=== PATIENT | male | born 1980 | race Caucasian/White ===

== ENCOUNTER 2018-05-16 15:36 | Observation (INO) | payer SELFPAY ==
--- NOTE | 2018-05-16 15:45 | EDPHY ---
H & P Time Seen by Provider: 05/16/18 15:45 HPI/ROS: HPI CHIEF COMPLAINT: Chest discomfort, fast heart rate HISTORY OF PRESENT ILLNESS: 37-year-old male, history of anxiety as well as SVT , states he has had SVT 20 times in his life and typically can self converted himself. He presents emergency room stating for the past 2-3 days he has had discomfort in his chest describes an achiness substernal sometimes goes up to his throat. He thinks it may be GERD. Additionally he reports that this morning he around 7:00 a.m. He thinks he was in SVT with a heart rate 160-1 70s. He splashed cold water on his face and this resolved that. However he states his heart rate has been elevated more so today than normally. He states he normally runs heart rate in the 60s to 70s. However he has noticed his heart rates been the 100s to 120s. He does have some chest discomfort. This prompted him to come to the emergency room. Upon arrival he does complain of discomfort in his chest. Additionally complains of anxiety. Past Medical History: Anxiety, SVT Past Surgical History: History right shoulder surgery Social History: Denies daily use of drugs alcohol tobacco. Family History: Noncontributory ROS REVIEW OF SYSTEMS: A comprehensive 10 point review of systems is otherwise negative aside from elements mentioned in the history of present illness. Exam Constitutional nontoxic appearing, slightly anxious triage nursing summary reviewed, vital signs reviewed, awake/alert. Vital signs noted to be tachycardic upon arrival in the 120s. Eyes normal conjunctivae and sclera, EOMI, PERRLA. HENT normal inspection, atraumatic, moist mucus membranes, no epistaxis, neck supple/ no meningismus, no raccoon eyes. Respiratory clear to auscultation bilaterally, normal breath sounds, no respiratory distress, no wheezing. Cardiovascular rate normal, regular rhythm, no murmur, no edema, distal pulses normal. Gastrointestinal soft, non-tender, no rebound, no guarding, normal bowel sounds, no distension, no pulsatile mass. Genitourinary no CVA tenderness. Musculoskeletal no midline vertebral tenderness, full range of motion, no calf swelling, no tenderness of extremities, no meningismus, good pulses, neurovascularly intact. Skin pink, warm, & dry, no rash, skin atraumatic. Neurologic awake, alert and oriented x 3, AAOx3, moves all 4 extremities equally, motor intact, sensory intact, CN II-XII intact, normal cerebellar, normal vision, normal speech. Psychiatric normal mood/affect. Heme/Lymph/Immune no lymphadenopathy. Differential diagnosis includes but is not limited to: ACS, atypical chest pain , pneumothorax, pneumonia, pulmonary embolism, aortic dissection, congestive heart failure, tumor, musculoskeletal pain, esophageal pain, GERD, peptic ulcer disease, pancreatitis Medical Decision Making: Plan for this patient chest x-ray, EKG, IV, point care troponin, rule out acute coronary syndrome, rule out acute cardiac arrhythmia. And evaluate him for chest pain tachycardia. D-dimer, labs, IV fluid bolus, GI cocktail and Ativan. Re-evaluation: EKG interpretation by me on record in [employer] system. Impression time of EKG 1548, sinus tachycardia rate of 114 T-wave inversion lead to [address] elevation. ED x-ray chest one view negative for acute cardiopulmonary disease. Point of care troponin 0.00. D-dimer < 100 which is normal for POC ddimer. Given the patient's ongoing tachycardia with some T-wave inversions in to 3 AVF in the history of chest discomfort I did recommend the patient gets admitted overnight for serial enzymes and observation. Reason for this chest pain, tachycardia T-wave inversions. Is noted his chest x-ray, D-dimer and troponin are negative. EKG is slightly abnormal I spoke with the hospitalist service Dr. Spangler has agreed to admit. 1856: Updated patient. He agrees for transfer and admission to the hospital for further evaluation of his chest discomfort tachycardia. Is noted the patient is tachycardic 115 at this time. It does trend down as you stand the room down the 90. However patient reports to me his heart rate is normally in the 60s. I do think he has an anxiety component of this however given his T-wave inversions in inferior leads, tachycardia and chest discomfort it is reasonable to observe him overnight. He has agreed for this. Source: Patient - Medical/Surgical History Hx Asthma: No Hx Chronic Respiratory Disease: No Hx Diabetes: No Hx Cardiac Disease: No Hx Renal Disease: No Hx Cirrhosis: No Hx Alcoholism: No Hx HIV/AIDS: No Hx Splenectomy or Spleen Trauma: No Other PMH: pmh: SVT. psh: - Social History Smoking Status: Never smoked Constitutional: Initial Vital Signs Temperature (C) 37.0 C 05/16/18 15:46 Heart Rate 117 H 05/16/18 15:46 Respiratory Rate 16 05/16/18 15:46 Blood Pressure 117/86 H 05/16/18 15:46 O2 Sat (%) 97 05/16/18 15:46 O2 Delivery Mode Room Air Allergies/Adverse Reactions: No Known Allergies Allergy (Verified 05/16/18 15:43) Home Medications: Medication Instructions Recorded ALPRAZolam [Xanax 0.5 MG (*)] 0.5 mg PO DAILY PRN 05/16/18 Escitalopram Oxalate [Lexapro 10 10 mg PO DAILY 05/16/18 MG] Herbals/Supplements -Info Only 1 ea PO DAILY 05/16/18 Lansoprazole [Prevacid] 15 mg PO DAILY 05/16/18 Calcium Carbonate [Tums 500MG (*)] 500 mg PO TID PRN tab.chew 05/17/18 Famotidine [Pepcid 20 MG (*)] 20 mg PO BID PRN #60 tab 05/17/18 Medical Decision Making - Data Points Laboratory Results: Laboratory Results 05/16/18 16:00 Medications Given: Discontinued Medications Al Hydroxide/Mg Hydroxide (Maalox Susp) 30 ml PO ONCE ONE Stop: 05/16/18 15:56 Last Admin: 05/16/18 16:23 Dose: 30 ml Alprazolam (Xanax) 0.5 mg PO DAILY PRN PRN Reason: Anxiety Stop: 11/12/18 23:01 Last Admin: 05/17/18 01:05 Dose: 0.5 mg Aspirin Buffered (Aspirin Ec) 325 mg PO EDNOW ONE Stop: 05/16/18 15:56 Last Admin: 05/16/18 16:22 Dose: 325 mg Escitalopram Oxalate (Lexapro) 10 mg PO DAILY AGUSTINA Stop: 11/13/18 08:59 Last Admin: 05/17/18 12:37 Dose: 10 mg Famotidine (Pepcid) 20 mg PO BID AGUSTINA Stop: 11/12/18 23:14 Last Admin: 05/17/18 12:37 Dose: 20 mg Hyoscyamine Sulfate (Levsin, Hyomax-Sl) 0.25 mg PO ONCE ONE Stop: 05/16/18 15:56 Last Admin: 05/16/18 16:22 Dose: 0.25 mg Sodium Chloride (Ns) 1,000 mls @ 0 mls/hr IV ONCE ONE PRN Reason: Wide Open Stop: 05/16/18 15:54 Last Admin: 05/16/18 16:23 Dose: 1,000 mls Lidocaine (Lidocaine 2% Viscous) 15 ml PO ONCE ONE Stop: 05/16/18 15:56 Last Admin: 05/16/18 16:23 Dose: 15 ml Lorazepam (Ativan Injection) 0.5 mg IVP EDNOW ONE Stop: 05/16/18 15:56 Last Admin: 05/16/18 16:23 Dose: 0.5 mg Pantoprazole Sodium (Protonix) 40 mg PO DAILY AGUSTINA Stop: 11/12/18 23:14 Last Admin: 05/17/18 12:37 Dose: 40 mg Point of Care Test Results: CBC CBC Collection Date 05/16/18 CBC Collection Time 15:59 WBC 6.1 RBC 5.96 HGB 18.5 HCT 53.2 PLT 265 Neut # 3.9 Neut 63.2 LYMPH # 1.8 LYMPH 29.8 Other WBC # 0.4 Other WBC 7.0 MCV 89.3 Chemistry 05/16/18 05/16/18 16:26 16:21 POC Sodium 141 mEq/L mEq/L (135-145) POC Potassium 3.4 mEq/L mEq/L (3.3-5.0) POC Chloride 102.0 mEq/L mEq/L (97-110) POC Total CO2 25 mEq/L mEq/L (22-31) POC BUN 9 mg/dL mg/dL (7-23) POC Creatinine 1.1 mg/dL mg/dL (0.7-1.3) POC Glucose 94 mg/dL mg/dL (70-100) POC Calcium 9.2 mg/dL mg/dL (8.5-10.4) POC Total Bilirubin 2.0 mg/dL H mg/dL (0.1-1.4) POC AST 31 IU/L IU/L (17-59) POC ALT 26 IU/L IU/L (21-72) POC Alk Phosphatase 54 IU/L IU/L (38-126) POC Troponin I 0.00 ng/mL ng/mL (0.00-0.08) POC Total Protein 7.5 g/dL g/dL (6.3-8.2) POC Albumin 4.8 g/dL g/dL (3.5-5.0) D-Dimer D-Dimer Collection Date 05/16/18 D-Dimer Collection Time 16:00 D-Dimer (ng/ml) <100 Departure - Departure Disposition: [facility] [place] Inpatient Acute Clinical Impression: Tachycardia Chest pain Qualifiers: Chest pain type: unspecified Qualified Code(s): R07.9 - Chest pain, unspecified Condition: Good
--- NOTE | 2018-05-16 15:50 | CPEKG ---
Heart Rate: 114 RR Interval: 526 P-R Interval: 136 QRSD Interval: 88 QT Interval: 320 QTC Interval: 441 P Belk: 70 QRS Belk: 48 T Wave Belk: -63 EKG Severity - BORDERLINE ECG - EKG Impression: SINUS TACHYCARDIA EKG Impression: BORDERLINE T ABNORMALITIES, INFERIOR LEADS Electronically Signed By: Miguel Tobin 16-May-2018 22:43:51
[2018-05-16] MEDS ORDERED: NS 1,000 ML IV ONE (15:53)
[2018-05-16] MEDS ORDERED: LIDOCAINE 2% VISCOUS 15 ML UDCUP PO ONE (15:55)
[2018-05-16] MEDS ORDERED: MAG HYDROX/AL HYDROX/SIMETH 30 ML UDCUP PO ONE (15:55)
[2018-05-16] MEDS ORDERED: HYOSCYAMINE SULFATE 0.125 MG TAB PO ONE (15:55)
[2018-05-16] MEDS ORDERED: LORazepam 2 MG/ML INJ IVP ONE (15:55)
[2018-05-16] MEDS ORDERED: ASPIRIN EC 325 MG TAB PO ONE (15:55)
[2018-05-16] MEDS ORDERED: ONDANSETRON DISINTEGRATING 4 MG TAB PO PRN (18:59)
[2018-05-16] MEDS ORDERED: ACETAMINOPHEN 325 MG TAB PO PRN (18:59)
[2018-05-16] MEDS ORDERED: ONDANSETRON 4 MG/2 ML VIAL IVP PRN (18:59)
[2018-05-16] MEDS ORDERED: NS 1,000 ML IV SCH (19:00)
[2018-05-16 19:17] LABS: PLATELET COUNT 277 10^3/uL (150-400)
[2018-05-16] MEDS ORDERED: ALPRAZolam 0.5 MG TAB PO PRN (23:02)
[2018-05-16] MEDS ORDERED: CALCIUM CARBONATE 500 MG CHEWABLE TAB PO PRN (23:03)
--- NOTE | 2018-05-16 23:07 | PDGENHP ---
History and Physical - Chief Complaint Acute chest pain - History of Present Illness Primary care provider: Dr. Mitesh Ahuja Primary supervisor screen making: Dr. Vipul Carrillo HPI: 37-year-old male presents with acute chest pain characterized as an achiness located in the center of his chest with onset of symptoms over the past several days and duration intermittent thereafter. He had thought that the pain was initially secondary to recent dietary indiscretions last week, which consist of increased fast food intake as well as drinking coffee in the morning without any additional breakfast solid food intake. He had been taking Prevacid and Zantac, without any particular relief. On the day of this presentation, the patient experienced associated rapid heart rate and a sensation of palpitations, occurring at rest, when he awoke for the morning. His Fitbit recorded the heart rate as approximately 160, and the patient alleviated the palpitations and discomfort by splashing cold water on his face. He reports that this sensation from his rapid heart rate was distinctly separate from the central chest achiness he had previously been feeling. Throughout the course of the day, the patient began perseverating on his chest discomfort, which seem to exacerbate it. The patient freely endorses that with emotional stress/anxiety and with physical exertion, his chest discomfort symptoms seem to be exacerbated. History Information - Allergies/Home Medication List Allergies/Adverse Reactions: No Known Allergies Allergy (Verified 05/16/18 15:43) Home Medications: ALPRAZolam [Xanax 0.5 MG (*)] 0.5 mg PO DAILY PRN 05/16/18 [Last Taken Unknown] Escitalopram Oxalate [Lexapro] 10 mg PO DAILY 05/16/18 [Last Taken 05/15/18] Herbals/Supplements -Info Only 1 ea PO DAILY 05/16/18 [Last Taken Unknown] Lansoprazole [Prevacid] 15 mg PO DAILY 05/16/18 [Last Taken Unknown] I have personally reviewed and updated: family history, medical history, social history, surgical history - Past Medical History Additional medical history: History of recurrent SVT with stress test approximately 5 years ago, previously on beta-nick but this resulted in symptomatic bradycardia and it was subsequently discontinued. Gastroesophageal reflux disease chronically on Prevacid. Anxiety disorder on Lexapro comma recently advised by his primary care provider that he should increase his dosage but he has not - Surgical History Additional surgical history: Shoulder - Family History Additional family history: Unknown history of his biological father, patient's biological mother does not have any premature coronary disease - Social History Smoking Status: Never smoked Alcohol Use: None Drug Use: None Additional social history: Is been approximately 4 months since the patient was engaged in any formal exercise program, reports a fairly sedentary job Review of Systems Review of Systems: ROS: 10pt was reviewed & negative except for what was stated in HPI & below Cardiac: Reports: chest pain, palpitations Neurological: Reports: anxiety Physical Exam Physical Exam: Temp Pulse Resp BP Pulse Ox 37.6 C 96 16 135/75 H 96 05/16/18 20:43 05/16/18 20:43 05/16/18 20:43 05/16/18 20:43 05/16/18 20:43 Constitutional: no apparent distress, appears nourished, not in pain Eyes: PERRL, anicteric sclera, EOMI Ears, Nose, Mouth, Throat: moist mucous membranes, hearing normal, ears appear normal, no oral mucosal ulcers Cardiovascular: regular rate and rhythym, no murmur, rub, or gallop, No edema Respiratory: no respiratory distress, no rales or rhonchi, clear to auscultation Gastrointestinal: normoactive bowel sounds, soft, non-tender abdomen, no palpable masses Skin: warm, No abrasion, No rash Musculoskeletal: other (No tenderness palpation over his anterior pectoralis muscles, sternum, full range of motion bilateral shoulders without any pain) Neurologic: AAOx3, No facial droop Psychiatric: not encephalopathic, thought process linear, anxious, No agitated Lab Data & Imaging Review 05/16/18 16:00 WBC 6.25 10^3/uL (3.80-9.50) 05/16/18 16:00 RBC 5.84 10^6/uL (4.40-6.38) 05/16/18 16:00 Hgb 18.0 g/dL (13.7-17.5) H 05/16/18 16:00 Hct 50.7 % (40.0-51.0) 05/16/18 16:00 MCV 86.8 fL (81.5-99.8) 05/16/18 16:00 MCH 30.8 pg (27.9-34.1) 05/16/18 16:00 MCHC 35.5 g/dL (32.4-36.7) 05/16/18 16:00 RDW 12.5 % (11.5-15.2) 05/16/18 16:00 Plt Count 277 10^3/uL (150-400) 05/16/18 16:00 MPV 9.4 fL (8.7-11.7) 05/16/18 16:00 Neut % (Auto) 62.6 % (39.3-74.2) 05/16/18 16:00 Lymph % (Auto) 28.8 % (15.0-45.0) 05/16/18 16:00 [place] % (Auto) 7.2 % (4.5-13.0) 05/16/18 16:00 Eos % (Auto) 0.3 % (0.6-7.6) L 05/16/18 16:00 Baso % (Auto) 0.8 % (0.3-1.7) 05/16/18 16:00 Nucleat RBC Rel Count 0.0 % (0.0-0.2) 05/16/18 16:00 Absolute Neuts (auto) 3.91 10^3/uL (1.70-6.50) 05/16/18 16:00 Absolute Lymphs (auto) 1.80 10^3/uL (1.00-3.00) 05/16/18 16:00 Absolute Monos (auto) 0.45 10^3/uL (0.30-0.80) 05/16/18 16:00 Absolute Eos (auto) 0.02 10^3/uL (0.03-0.40) L 05/16/18 16:00 Absolute Basos (auto) 0.05 10^3/uL (0.02-0.10) 05/16/18 16:00 Absolute Nucleated RBC 0.00 10^3/uL (0-0.01) 05/16/18 16:00 Immature Gran % 0.3 % (0.0-1.1) 05/16/18 16:00 Immature Gran # 0.02 10^3/uL (0.00-0.10) 05/16/18 16:00 D-Dimer < 0.27 ug/mLFEU (0.00-0.50) 05/16/18 16:00 POC Sodium 141 mEq/L (135-145) 05/16/18 16:26 POC Potassium 3.4 mEq/L (3.3-5.0) 05/16/18 16:26 POC Chloride 102.0 mEq/L (97-110) 05/16/18 16:26 POC Total CO2 25 mEq/L (22-31) 05/16/18 16:26 POC BUN 9 mg/dL (7-23) 05/16/18 16:26 POC Creatinine 1.1 mg/dL (0.7-1.3) 05/16/18 16:26 POC Glucose 94 mg/dL (70-100) 05/16/18 16:26 POC Calcium 9.2 mg/dL (8.5-10.4) 05/16/18 16:26 POC Total Bilirubin 2.0 mg/dL (0.1-1.4) H 05/16/18 16:26 POC AST 31 IU/L (17-59) 05/16/18 16:26 POC ALT 26 IU/L (21-72) 05/16/18 16:26 POC Alk Phosphatase 54 IU/L (38-126) 05/16/18 16:26 POC Troponin I 0.00 ng/mL (0.00-0.08) 05/16/18 16:21 Troponin I < 0.012 ng/mL (0.000-0.034) 05/16/18 21:55 POC Total Protein 7.5 g/dL (6.3-8.2) 05/16/18 16:26 POC Albumin 4.8 g/dL (3.5-5.0) 05/16/18 16:26 Visualized and Interpreted Chest x-ray results: Yes Chest X-Ray results: no infiltrate Visualized and Interpreted EKG results: Yes EKG Interpretation: Positive for: other (Sinus tach, T-wave inversions in leads 2-3 and AVF) Assessment & Plan Assessment: 37-year-old male presenting with acute chest pain and palpitations in the setting of known history of SVT Plan: 1. Chest pain. Acute, new problem this provider, further workup indicated. Unclear etiology, it seems that the patient has 2 separate, distinct types of chest discomfort, 1 which is central and achy and persistent, and another which is a intermittent and associated with palpitations (latter is likely SVT) -given that is been 5 years since his most recent stress test, repeat with EKG imaging modality and treadmill as stress -compared his EKG to 1 from February of 2016, at that time demonstrated T-wave inversion in the same leads as well as a sinus arrhythmia -cycle cardiac enzymes -monitor for SVT and any additional tachyarrhythmias on telemetry -suspect there is a strong anxiety component, continue home anxiety lytic medication, and encourage the patient to uptitrate his Lexapro as recommended by his primary care provider -there may also be a strong GERD component as I have reviewed outside records including 11/15/2014 upper GI series as read by Dr. Micah Gutierrez, indicating the patient had GERD as well as suspected duodenitis, recommend the patient upgrade his lansoprazole to pantoprazole 40 mg daily and begin scheduled famotidine 20 mg twice daily as well 2. History of SVT. I suspect that the patient is experiencing SVT, with his Fitbit recording heart rate between 160 and 170 while he was experiencing symptomatic palpitations -patient reports his most recent none episode of SVT was approximately a year ago, he reports that Dr. Carrillo has yet to capture any episodes objectively on event monitoring -consequently, it is unlikely that we will capture an episode of SVT on telemetry overnight, but with his sudden onset of symptomatic SVT on the day of presentation, continue monitor on telemetry and recommend the patient follow up closely with Dr. Carrillo for consideration of link recorder -I have consulted with Dr. Niles Munoz, they will see the patient in the a.m. -is unclear whether the patient will tolerate a low-dose calcium channel inck , as he reports he has not tolerated low-dose beta-nick, and his baseline resting heart rate is between 50 and 60 3. Anxiety disorder. Continue Lexapro, recommend up titrating as advised by Dr. Garland Diet. Regular, NPO in a.m. Prophylaxis. Low risk patient, SCDs Code. Full Disposition. Anticipated discharge is 05/17, pending further workup and treatment of above. I have discussed patient's presentation with Dr. Miguel Tobin, we both agree that given the suggestive nature of patient's symptoms being related to a tachyarrhythmia, he should be observed overnight and Cardiology should be consulted.
[2018-05-17] MEDS: FAMOTIDINE 20 MG TAB PO SCH ×2 (00:58→12:37)
[2018-05-17] MEDS: PANTOPRAZOLE SODIUM 40 MG TAB PO SCH ×2 (00:58→12:37)
[2018-05-17] MEDS ORDERED: ALPRAZolam 0.25 MG TAB PO PRN (01:30)
[2018-05-17 04:42] LABS: PLATELET COUNT 230 10^3/uL (150-400)
[2018-05-17] MEDS ORDERED: ESCITALOPRAM OXALATE 10 MG TAB PO SCH (09:00)
--- NOTE | 2018-05-17 10:24 | ASMTCMCOM ---
CM Note CM Note Notes: Pt admitted OBS for CP. Anticipate pt will have no DC needs. Date Signed: 05/17/2018 10:24 AM Electronically Signed By:Kyra Bergman LCSW
--- NOTE | 2018-05-17 11:30 | GCON ---
[f rep st] CONSULTATION CARDIOLOGY CONSULTATION DATE OF CONSULTATION: 05/17/2018 INDICATION FOR CONSULTATION: Chest pain and palpitations with a history of supraventricular tachycar brittney. HISTORY OF PRESENT ILLNESS: The patient is a pleasant 37-year-old gentleman with a history of suprav entricular tachycardia initially diagnosed approximately 9 years ago while in [place]. He also has a history of underlying anxiety and acid reflux. He states he was in his usual state of health unti l this past week on Friday when he developed episodic substernal chest discomfort. He states the discomfort would radiate up into his neck. He denied any exacerbating or alleviating factors. He de nied any other associated symptoms. He states the symptoms would last approximately 5 minutes and re solve spontaneously. He states these episodes of discomfort would wax and wane intermittently. He s tates his chest discomfort has been constant for the last several days. He has a known history of episodic chest discomfort. In reviewing his [place] chart, he was seen ap proximately 6 months ago with similar chest symptoms thought to be secondary to his underlying anxiet y disorder. He presented to [facility] last evening with ongoing chest discomfort and an episode of rapid heartbeat prompting him to seek further evaluation. Upon his arrival in the emergency depar tme, he was in sinus tachycardia at 114 beats per minute. Currently, at the time of my exam, he is resting comfortably. He is asymptomatic. His troponins hav e been negative x2. He has not undergone any cardiac risk stratification for approximately 7 years. He has been seen in the past by Dr. Carrillo at [facility]. He has been on beta blockers in the past for SVT, which h e did not tolerate well, secondary to symptomatic bradycardia. He has never been seen by electrophys iology or consulted for ablation. ECG demonstrates sinus tachycardia at 114 beats per minute with QT corrected interval of 441 millisec onds. Telemetry demonstrates sinus rhythm to sinus bradycardia. He did have 1 non-conducted beat at approximately 5:30 this morning that was asymptomatic. REVIEW OF SYSTEMS: Positive for chest discomfort, palpitations. Negative for shortness of breath, n ausea, vomiting, or diaphoresis. Remainder of 10-point review of systems is negative. PAST MEDICAL HISTORY: 1. Remote history of paroxysmal supraventricular tachycardia diagnosed approximately 9 years ago. 2. GERD. 3. Anxiety. PAST SURGICAL HISTORY: Shoulder surgery. SOCIAL HISTORY: He is . He has 3 children, ages 4, 3, and 9 months. He works as a [employer]. He is . He is a lifelong nonsmoker. He rarely drinks alcohol. He does not exercise regu larly primarily, secondary to concerns about his heart. FAMILY HISTORY: He does not know his biological father. His mother has no known history of coronary disease. His biological siblings have no known history of heart disease. PHYSICAL EXAMINATION: VITAL SIGNS: Blood pressure 127/84, heart rate is 68 in sinus rhythm, respira tory rate of 16, oxygen saturation 96% on room air, temperature 36.6. GENERAL: He is awake, alert, oriented, appropriate in no apparent distress. NECK: There is no evidence of JVP or carotid bruits. LUNGS: Clear to auscultation bilaterally. ABDOMEN: Soft, nontender, nondistended. There is no p ulsatile mass or abdominal bruit. There is no evidence of cyanosis, clubbing or edema. DATA: White blood cell count 7.52, hemoglobin of 15.6, hematocrit of 44.7, platelets 230. Sodium 13 7, potassium 4.0, chloride 105, bicarb 26, BUN 11, creatinine 0.9, glucose 81. Troponins have been l ess than 0.012 x2. ECG demonstrates sinus tachycardia at 114 beats per minute with normal intervals. Normal axis. QTc of 441 milliseconds. Chest x-ray is unremarkable. Telemetry demonstrates sinus rhythm to sinus bradycardia, 1 non-conducted P-wave asymptomatic at appr oximately 5:30 am this morning. MEDICATIONS: On admission: Xanax, Lexapro, and Prevacid. IMPRESSION: 1. Atypical chest pain. 2. Palpitations with history of supraventricular tachycardia. 3. History of coronary disease per calcium score with a value of 1.6 per patient report. I do not h ave calcium score from my review. SUMMARY: The patient is a pleasant 37-year-old gentleman with a known history of paroxysmal supraven tricular tachycardia. He reports approximately 5-6 episodes over the last 9 years, intolerant to bet a nick in the past, secondary to symptomatic bradycardia. He states that when these episodes occu r, his heart rate is at least 160 beats per minute, which he recently recorded on his Fitbit this pas t week. Per his report, his initial episode in [facility] 9 years ago had a heart rate of 280. I think his symptoms of chest discomfort are atypical and most likely noncardiac in origin. He has m ultiple medical issues that may reflect noncardiac chest pain, including gastroesophageal reflux dise ase and underlying anxiety. In the setting of slightly elevated calcium score and chest symptoms, wo uld recommend exercise treadmill stress test for further risk stratification today. If his stress test is unremarkable, would recommend discharge home on current medical therapy and fol low up with Dr. Niles Munoz for consultation regarding ablation. PLAN: 1. Exercise treadmill stress test this morning. 2. If stress test is negative, with discharge home with plan for outpatient consult for consideratio n of SVT ablation with Dr. Munoz. 3. We will discuss medical therapy in the setting coronary disease based on calcium score, including aspirin, statin therapy. 4. We will obtain fasting lipid profile this morning. /[id number]/MODL
--- NOTE | 2018-05-17 11:35 | PDDCSUM ---
Discharge Summary Discharge Summary: Dates of service 05/16-05/17/18 Consultations: cardiology Procedures performed: echocardiogram, treadmill stress test Hospital course by problem: 37-year-old male presenting with acute chest pain and palpitations in the setting of known history of SVT Plan: # Chest pain. by evaluation and hx this seems less likely to be cardiac, echo without wall motion abnormality, treadmill stress negative, trops normal x 3. Appreciate cardiology evaluation. May be either GERD versus anxiety, will dc with addition of famotidine and tums # hx of SVT: patient to f/u [facility] cardiology for consideration of SVT ablation as an OP, not an active issue during this stay # anxiety: continue lexapro and prn alprazolam DC home f/u with PCP and cardiology
--- NOTE | 2018-05-17 12:20 | CPR ---
[f rep st] NONINVASIVE CARDIAC PROCEDURE REPORT DATE OF PROCEDURE: 05/17/2018 PROCEDURE PERFORMED: Exercise treadmill stress test. INDICATION FOR PROCEDURE: Atypical chest pain. DESCRIPTION OF PROCEDURE: After informed consent was obtained, the patient was brought to the [facility] treadmill stress lab. He was able to exercise on a standard Aris protocol for 11 minutes. Peak h eart rate of 182 beats per minute representing approximately 95% of maximum predicted heart rate. He had no ECG changes. He had some mild throat tightness throughout the course of the study, which he had prior to starting the treadmill. No exacerbation of symptoms. He had no evidence of SVT induced with exercise. IMPRESSION: 1. Normal exercise treadmill stress test. 2. Kaminski treadmill score 11, low cardiac risk. 3. Recommend follow up with Dr. Niles Munoz as an outpatient for consideration of SVT ablation. /[id number]/MODL
[2018-05-17 12:38] VITALS: BP 129/79
--- NOTE | 2018-05-17 12:40 | ASDISCHSUM ---
Discharge Information Plan Status:Home with No Needs Medically Cleared to Leave:05/17/2018 Discharge Date:05/17/2018 CM D/C Disposition:Home, Routine, Self-Care ADT D/C Disposition:Home, Routine, Self-Care Projected Discharge Date:05/17/2018 Transportation at D/C:Family Discharge Delay Reason: Follow-Up Date:05/17/2018 Discharge Slot: Final Diagnosis: Placement Information Patient Contact Information Contact Name:STEF Relationship: Address:[address] Work Phone: City:[facility] Phone: State/Zip Code:[place] [address] Email: Financial Information Financial Class:Self-Pay Primary Plan Desc:SELF PAY Primary Plan Number: Secondary Plan Desc: Secondary Plan Number: Assessment Information [facility] CM Progress Note CM Note CM Note Notes: Pt admitted OBS for CP. Anticipate pt will have no DC needs. Date Signed: 05/17/2018 10:24 AM Electronically Signed By:Kyra Bergman LCSW Intervention Information
--- NOTE | 2018-05-17 12:41 | ASMTCMCOM ---
CM Note CM Note Notes: Patient has been medically cleared for discharge to home. No needs. CM available should needs arise. Plan: Home independently. Date Signed: 05/17/2018 12:41 PM Electronically Signed By:Kathrine Lee RN
--- NOTE | 2018-05-17 14:29 | ECHO ---
[email or web address] [address] [address] Main: [phone] Fax: Transthoracic Echocardiogram Name: DONOVAN JACKSON MR#: [id number] Study Date: 05/17/2018 Study Time: 10:13 AM Date of : 1980 Age: 37 year(s) Height: 177.8 cm (70 in.) Weight: 97.98 kg (216 lb.) BSA: 2.16 m2 Gender: Male Examination: Echo Indication: tachyarrhythmia Image Quality: Adequate Contrast: Requested by: Reese Malagon BP: 127 mmHg/84 mmHg Heart Rate: Rhythm: Indication: tachyarrhythmia Procedure Staff Visitor Services Coordinator: Beth Sanchez RDCS Reading Physician: Enrico Riley MD Requesting Provider: Conclusions: Normal size left ventricle. Normal global systolic LV function. EF is 56 %. Normal diastolic LV function. Normal RV function. The left atrium is normal in size. The right atrium is normal in size. The pulmonary artery pressure is normal. No pericardial effusion. Measurements: Chambers Valvular Assessment AV/MV Valvular Assessment TV/PV Normal Normal Normal Name Value Range Name Value Range Name Value Range Ao Kailny (2D): 2.7 cm (1.4 cm-2.6 AV Vmax: 1.40 m/s (1 m/s-1.7 PV Vmax: 1.21 m/s (0.6 m/s-0.9 cm) m/s) m/s) IVSd (2D): 1.0 cm (0.6 cm-1.1 AV maxP mmHg ( - ) PV PGmax: 6 mmHg ( - ) cm) AV meanP mmHg ( - ) LVDd (2D): 4.9 cm (4.2 cm-5.9 TREMAYNE (VTI): 2.3 cm ( - ) cm) MV E Vmax: 0.86 m/s ( - ) LVDs (2D): 3.6 cm (2.1 cm-4 MV A Vmax: 0.56 m/s ( - ) cm) MV E/A: 1.54 ( - ) LVPWd (2D): 1.0 cm (0.6 cm-1 cm) MV PHT: 0.060 s ( - ) LVOTd 2.1 cm 2.1 cm mm MVA (PHT): 3.7 s ( - ) LVEF (BP): 56 % (>=55 %) RVDd(2D): 3.1 cm (1.9 cm-3.8 cmmm) Continued Measurements: Patient: DONOVAN JACKSON Study Date: 05/17/2018 Page 1 of 2 10:13 AM Chambers Valvular Assessment AV/MV Valvular Assessment TV/PV Name Value Name Value Name Value LADs: 3.7 cm MV DecTime: 194 m/s CVP (est.): 5 mmHg LADs Lon.6 cm MV E' Septal: 0.10 m/s LA Area: 18.3 cm2 MV E/E' Septal: 8.70 LA Volume: 54 ml MV E/E' Lateral: 6.00 LA Volume Index: 25.0 ml/m2 RA Area: 16.7 cm2 Additional Vessels Name Value Ao Ascendin.9 cm Findings: Left Ventricle: Normal size left ventricle. No LV hypertrophy. Normal global systolic LV function. EF is 56 %. No regional wall motion abnormality. Normal diastolic LV function. Right Ventricle: Normal size right ventricle. Normal RV function. Left Atrium: The left atrium is normal in size. Right Atrium: The right atrium is normal in size. Mitral Valve: The mitral valve is normal in appearance and function. Trivial to mild mitral regurgitation. No mitral stenosis is present. Aortic Valve: The aortic valve is tri-leaflet. There is no significant aortic valve regurgitation. No aortic valve stenosis is present. Tricuspid Valve: The tricuspid valve is normal in appearance and function. Mild tricuspid regurgitation is present. The pulmonary artery pressure is normal. Pulmonic Valve: The pulmonic valve is normal in appearance and function. There is no pulmonic regurgitation seen. Aorta: The aorta is normal. Normal size aortic root measuring 2.7 cm. Normal size ascending aorta measuring 2.9 cm. IVC: Subcostal not well visualized. Pericardium: No pericardial effusion. No pleural effusion. (No Signature Object) Patient: DONOVAN JACKSON Study Date: 05/17/2018 Page 2 of 2 10:13 AM [id number]
== END 2018-05-17 12:55 | disposition home or self-care (01) ==
LOC: CED 15:36 → CEDHOLD 18:55 → F2W 20:39
PROVIDERS: ADMIT Internal Medicine; ATTEND Internal Medicine
DX: R07.9 Chest pain, unspecified (principal); I47.1 Supraventricular tachycardia; K21.9 Gastro-esophageal reflux disease without esophagitis; F41.9 Anxiety disorder, unspecified
CPT/HCPCS: 71045-PO; 80053-PO; 84484-PO; 96374; G0378; J2060